=== PATIENT | female | born 1960 | race Caucasian/White ===

== ENCOUNTER 2018-01-08 12:41 | Emergency (ER) | payer OTHER ==
[2018-01-08 13:16] VITALS: BP 143/49
[2018-01-08] MEDS ORDERED: KETOROLAC TROMETHAMINE 30 MG/1ML VIAL IM ONE (13:52)
[2018-01-08] MEDS ORDERED: DIAZEPAM 5 MG TABLET PO ONE (13:52)
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
== END 2018-01-08 14:35 | disposition home or self-care (01) ==
LOC: ED 12:41
DX: S13.4XXA Sprain of ligaments of cervical spine, initial encounter (principal); V89.2XXA Person injured in unspecified motor-vehicle accident, traffic, initial encounter; Y92.9 Unspecified place or not applicable; Y93.9 Activity, unspecified; Y99.9 Unspecified external cause status
CPT/HCPCS: 72040; J1885; 96372; 99284